=== PATIENT | male | born 1945 | race African-American/Black ===

== ENCOUNTER 2023-12-16 17:22 | Inpatient (IN) | payer OTHER ==
[2023-12-16] VITALS (9 sets, daily range): BP systolic 108–169; PULSE 42–85; RESP 15–23; TEMP 97.8–98.3; O2SAT 95–99
[~2023-12-16] VITALS: Ht 188 cm; Wt 99.8 kg
[2023-12-16] MEDS ORDERED: TRAZ-250 PO (17:34)
[2023-12-16] MEDS ORDERED: GLIP5TAB26 PO (17:34)
[2023-12-16] MEDS ORDERED: PIOG30TA70 PO (17:34)
[2023-12-16] MEDS ORDERED: FAMO40TA7 PO (17:34)
[2023-12-16] MEDS ORDERED: SILD20TA PO (17:34)
[2023-12-16] MEDS ORDERED: TAMS-11 PO (17:34)
[2023-12-16] MEDS ORDERED: GLIP-201 PO (17:34)
[2023-12-16] MEDS ORDERED: METF-834 PO (17:34)
[2023-12-16 18:24] LABS: BASOPHILS % (AUTO) 0.5 % (0.0-2.0); EOSINOPHILS # (AUTO) 0.4 K/uL (0.0-0.4); EOSINOPHILS % (AUTO) 5.3 % (0.0-4.0); HEMOGLOBIN 12.6 g/dL (14.0-18.0); LYMPHOCYTES # (AUTO) 2.7 K/uL (1.0-5.5); LYMPHOCYTES % (AUTO) 32.3 % (20.5-51.5); MEAN CORPUSCULAR HEMOGLOBIN 33 pg (27-31); MEAN CORPUSCULAR HGB CONC 34 % (32-36); MEAN CORPUSCULAR VOLUME 96 fL (79.0-98.0); MONOCYTES # (AUTO) 0.7 K/uL (0.0-1.0); MONOCYTES % (AUTO) 8.4 % (1.7-9.3); NEUTROPHILS # (AUTO) 4.4 K/uL (1.8-7.7); NEUTROPHILS % (AUTO) 53.5 % (40.0-70.0); PLATELET COUNT (AUTO) 172 K/uL (130-430); RED BLOOD CELL COUNT(AUTO) 3.84 MIL/uL (4.2-6.2); RED CELL DISTRIBUTION WIDTH 13.3 % (9.0-15.0); WHITE BLOOD COUNT (AUTO) 8.3 K/uL (4.8-10.8)
[2023-12-16] MEDS: ASPIRIN 325 MG TABLET PO ONE (18:34)
[2023-12-16 18:42] LABS: ANION GAP 10 (5-15); CALCIUM 8.8 mg/dL (8.4-11.0); CARBON DIOXIDE 25 mmol/L (23-29); CHLORIDE 110 mmol/L (98-107); CREATININE 1.72 mg/dL (0.55-1.30); GLUCOSE 114 mg/dL (74-106); SODIUM SERUM 145 mmol/L (136-145); UREA NITROGEN, BLOOD 19 mg/dL (8-21)
[2023-12-16 18:45] LABS: POTASSIUM 4.7 mmol/L (3.5-5.1)
[2023-12-16] MEDS ORDERED: LORazepam 1 MG TABLET PO ONE (18:45)
[2023-12-16] MEDS: MORPHINE 2 MG/ML INJ. SYRINGE IVP ONE (20:13)
[2023-12-16] MEDS ORDERED: HYDROcodone/ACETAMIN 10-325 MG TAB PO PRN (22:00)
[2023-12-16] MEDS ORDERED: HYDROcodone/ACETAMIN 5-325 MG TAB (NORCO/ VICODIN) PO PRN (22:00)
[2023-12-16] MEDS ORDERED: ONDANSETRON HCL 4 MG/2 ML VIAL IVP PRN (22:00)
[2023-12-16] MEDS ORDERED: ACETAMINOPHEN 325 MG TABLET PO PRN (22:00)
[2023-12-16] MEDS ORDERED: NALOXONE HCL 0.4 MG/ML AMP (NARCAN) IVP PRN ×2 (22:00)
[2023-12-16] MEDS ORDERED: LORazepam 2 MG/ML VIAL IVP PRN (22:00)
[2023-12-17] VITALS (28 sets, daily range): BP systolic 109–165; PULSE 38–62; RESP 11–27; TEMP 97.7–98; O2SAT 94–99
[2023-12-17] MEDS: traZODone HCL 50 MG TABLET (DESYREL) PO SCH (00:25)
[2023-12-17] MEDS: traZODone HCL 50 MG TABLET (DESYREL) ONE (01:42)
[2023-12-17 04:01] LABS: BASOPHILS % (AUTO) 0.3 % (0.0-2.0); EOSINOPHILS # (AUTO) 0.5 K/uL (0.0-0.4); EOSINOPHILS % (AUTO) 5.5 % (0.0-4.0); HEMATOCRIT 35.2 % (36-54); HEMOGLOBIN 12.1 g/dL (14.0-18.0); LYMPHOCYTES # (AUTO) 3.1 K/uL (1.0-5.5); LYMPHOCYTES % (AUTO) 37.5 % (20.5-51.5); MEAN CORPUSCULAR HEMOGLOBIN 33 pg (27-31); MEAN CORPUSCULAR HGB CONC 34 % (32-36); MEAN CORPUSCULAR VOLUME 97 fL (79.0-98.0); MONOCYTES # (AUTO) 0.7 K/uL (0.0-1.0); MONOCYTES % (AUTO) 8.7 % (1.7-9.3); PLATELET COUNT (AUTO) 160 K/uL (130-430); RED BLOOD CELL COUNT(AUTO) 3.63 MIL/uL (4.2-6.2); RED CELL DISTRIBUTION WIDTH 13.4 % (9.0-15.0); WHITE BLOOD COUNT (AUTO) 8.4 K/uL (4.8-10.8)
[2023-12-17 04:12] LABS: ANION GAP 8 (5-15); CALCIUM 8.8 mg/dL (8.4-11.0); CARBON DIOXIDE 27 mmol/L (23-29); CHLORIDE 109 mmol/L (98-107); CREATININE 1.67 mg/dL (0.55-1.30); GLUCOSE 89 mg/dL (74-106); POTASSIUM 4.4 mmol/L (3.5-5.1); SODIUM SERUM 144 mmol/L (136-145); UREA NITROGEN, BLOOD 17 mg/dL (8-21)
[2023-12-17] MEDS ORDERED: SILD100T PO (06:32)
[2023-12-17] MEDS ORDERED: METF-379 PO (06:43)
[2023-12-17] MEDS ORDERED: GLIP5TAB23 PO (08:28)
[2023-12-17] MEDS ORDERED: glipiZIDE XL 5 MG TAB ( GLUCOTROL XL) PO SCH (08:30)
[2023-12-17] MEDS: TAMSULOSIN HCL 0.4 MG CAP PO SCH (09:13)
[2023-12-17] MEDS: PIOGLITAZONE HCL 15 MG TABLET PO SCH (09:13)
[2023-12-17] MEDS: metFORMIN HCL 500 MG TABLET PO SCH (09:14)
[2023-12-17] MEDS: FAMOTIDINE 20 MG TABLET PO SCH (09:14)
[2023-12-17] MEDS ORDERED: INSULIN REGULAR, HUMAN 100 UNITS/ML, 3 ML VIAL SUBCUT SCH (11:30)
[2023-12-18] VITALS (27 sets, daily range): BP systolic 100–171; PULSE 40–71; RESP 14–24; TEMP 97.4–98; O2SAT 93–99
[2023-12-18] MEDS: traZODone HCL 50 MG TABLET (DESYREL) PO ONE (00:11)
[2023-12-18 03:56] LABS: BASOPHILS % (AUTO) 0.5 % (0.0-2.0); EOSINOPHILS # (AUTO) 0.5 K/uL (0.0-0.4); EOSINOPHILS % (AUTO) 6.5 % (0.0-4.0); HEMATOCRIT 36.2 % (36-54); HEMOGLOBIN 12.4 g/dL (14.0-18.0); LYMPHOCYTES # (AUTO) 2.8 K/uL (1.0-5.5); MEAN CORPUSCULAR HEMOGLOBIN 33 pg (27-31); MEAN CORPUSCULAR HGB CONC 34 % (32-36); MEAN CORPUSCULAR VOLUME 97 fL (79.0-98.0); MONOCYTES # (AUTO) 0.6 K/uL (0.0-1.0); MONOCYTES % (AUTO) 7.9 % (1.7-9.3); NEUTROPHILS % (AUTO) 50.1 % (40.0-70.0); PLATELET COUNT (AUTO) 165 K/uL (130-430); RED BLOOD CELL COUNT(AUTO) 3.74 MIL/uL (4.2-6.2); RED CELL DISTRIBUTION WIDTH 13.1 % (9.0-15.0); WHITE BLOOD COUNT (AUTO) 8.1 K/uL (4.8-10.8)
[2023-12-18 04:20] LABS: ALANINE AMINOTRANSFERASE 8 U/L (12-78); ALBUMIN 3.1 g/dL (3.4-4.8); ANION GAP 8 (5-15); ASPARTATE AMINOTRANSFERASE < 5 U/L (10-37); CARBON DIOXIDE 28 mmol/L (23-29); CHLORIDE 108 mmol/L (98-107); CREATININE 1.49 mg/dL (0.55-1.30); GLUCOSE 81 mg/dL (74-106); PHOSPHORUS 5.1 mg/dL (2.7-4.5); POTASSIUM 4.6 mmol/L (3.5-5.1); SODIUM SERUM 144 mmol/L (136-145); TOTAL BILIRUBIN 0.5 mg/dL (0.0-1.0); UREA NITROGEN, BLOOD 16 mg/dL (8-21)
[2023-12-18] MEDS: INSULIN REGULAR, HUMAN 100 UNITS/ML, 3 ML VIAL (humuLIN R) SUBCUT PRN (11:31)
[2023-12-18] MEDS ORDERED: traZODone HCL 50 MG TABLET (DESYREL) PO ONE (21:00)
[2023-12-18] MEDS: hydrALAZINE HCL 20 MG/ML VIAL IVP PRN (22:56)
[2023-12-19] VITALS (20 sets, daily range): BP systolic 93–147; PULSE 48–73; RESP 10–25; TEMP 97.7–98.9; O2SAT 94–100
[2023-12-19 05:42] LABS: BASOPHILS % (AUTO) 0.5 % (0.0-2.0); EOSINOPHILS # (AUTO) 0.5 K/uL (0.0-0.4); EOSINOPHILS % (AUTO) 5.5 % (0.0-4.0); HEMATOCRIT 38.2 % (36-54); HEMOGLOBIN 13.1 g/dL (14.0-18.0); LYMPHOCYTES % (AUTO) 24.3 % (20.5-51.5); MEAN CORPUSCULAR HEMOGLOBIN 33 pg (27-31); MEAN CORPUSCULAR HGB CONC 34 % (32-36); MEAN CORPUSCULAR VOLUME 97 fL (79.0-98.0); MONOCYTES # (AUTO) 0.7 K/uL (0.0-1.0); MONOCYTES % (AUTO) 8.1 % (1.7-9.3); NEUTROPHILS # (AUTO) 5.1 K/uL (1.8-7.7); NEUTROPHILS % (AUTO) 61.6 % (40.0-70.0); PLATELET COUNT (AUTO) 174 K/uL (130-430); RED BLOOD CELL COUNT(AUTO) 3.95 MIL/uL (4.2-6.2); RED CELL DISTRIBUTION WIDTH 13.2 % (9.0-15.0); WHITE BLOOD COUNT (AUTO) 8.2 K/uL (4.8-10.8)
[2023-12-19 06:09] LABS: ANION GAP 14 (5-15); CARBON DIOXIDE 25 mmol/L (23-29); CHLORIDE 106 mmol/L (98-107); CREATININE 1.47 mg/dL (0.55-1.30); GLUCOSE 84 mg/dL (74-106); PHOSPHORUS 4.6 mg/dL (2.7-4.5); POTASSIUM 3.5 mmol/L (3.5-5.1); SODIUM SERUM 145 mmol/L (136-145); UREA NITROGEN, BLOOD 16 mg/dL (8-21)
[2023-12-20] VITALS: BP_SYST 156; PULSE 66; RESP 20; TEMP 97.7; O2SAT 100
[2023-12-20 04:00] VITALS: BP_SYST 128; PULSE 62; RESP 18; TEMP 98.1; O2SAT 98
[2023-12-20 06:19] LABS: BASOPHILS % (AUTO) 0.4 % (0.0-2.0); EOSINOPHILS # (AUTO) 0.5 K/uL (0.0-0.4); EOSINOPHILS % (AUTO) 6.2 % (0.0-4.0); HEMOGLOBIN 12.4 g/dL (14.0-18.0); LYMPHOCYTES % (AUTO) 24.3 % (20.5-51.5); MEAN CORPUSCULAR HEMOGLOBIN 33 pg (27-31); MEAN CORPUSCULAR HGB CONC 34 % (32-36); MEAN CORPUSCULAR VOLUME 97 fL (79.0-98.0); MONOCYTES # (AUTO) 0.8 K/uL (0.0-1.0); MONOCYTES % (AUTO) 9.2 % (1.7-9.3); NEUTROPHILS % (AUTO) 59.9 % (40.0-70.0); PLATELET COUNT (AUTO) 170 K/uL (130-430); RED CELL DISTRIBUTION WIDTH 13.4 % (9.0-15.0); WHITE BLOOD COUNT (AUTO) 8.3 K/uL (4.8-10.8)
[2023-12-20 06:37] LABS: ANION GAP 10 (5-15); CALCIUM 9.1 mg/dL (8.4-11.0); CARBON DIOXIDE 27 mmol/L (23-29); CHLORIDE 107 mmol/L (98-107); CREATININE 1.58 mg/dL (0.55-1.30); GLUCOSE 135 mg/dL (74-106); PHOSPHORUS 4.8 mg/dL (2.7-4.5); POTASSIUM 4.6 mmol/L (3.5-5.1); SODIUM SERUM 144 mmol/L (136-145); UREA NITROGEN, BLOOD 12 mg/dL (8-21)
[2023-12-20 08:00] VITALS: BP_SYST 158; PULSE 69; RESP 16; TEMP 98.4; O2SAT 99
[2023-12-20 12:28] VITALS: BP_SYST 136; PULSE 65; RESP 20; TEMP 97.2; O2SAT 99
[2023-12-20 13:02] VITALS: BP_SYST 136; PULSE 65; RESP 20; TEMP 97.2; O2SAT 99
== END 2023-12-20 13:45 | disposition home or self-care (01) | DRG 308 ==
LOC: SED 17:22 → SIC 19:28 → STU 12-19 18:45
PROVIDERS: ADMIT Preventive Medicine Preventive Medicine/Occupational Environmental Medicine; ATTEND Preventive Medicine Preventive Medicine/Occupational Environmental Medicine
DX: I49.5 Sick sinus syndrome (principal); N17.0 Acute kidney failure with tubular necrosis; E44.0 Moderate protein-calorie malnutrition; E78.5 Hyperlipidemia, unspecified; I48.0 Paroxysmal atrial fibrillation; E11.22 Type 2 diabetes mellitus with diabetic chronic kidney disease; I12.9 Hypertensive chronic kidney disease with stage 1 through stage 4 chronic kidney disease, or unspecified chronic kidney disease; N18.9 Chronic kidney disease, unspecified; E83.39 Other disorders of phosphorus metabolism; N40.0 Benign prostatic hyperplasia without lower urinary tract symptoms; I44.0 Atrioventricular block, first degree; E11.65 Type 2 diabetes mellitus with hyperglycemia; D64.9 Anemia, unspecified; K21.9 Gastro-esophageal reflux disease without esophagitis; E88.09 Other disorders of plasma-protein metabolism, not elsewhere classified; F03.90 Unspecified dementia, unspecified severity, without behavioral disturbance, psychotic disturbance, mood disturbance, and anxiety; Z79.84 Long term (current) use of oral hypoglycemic drugs; Z79.899 Other long term (current) drug therapy; Z79.01 Long term (current) use of anticoagulants; Z68.28 Body mass index [BMI] 28.0-28.9, adult; Z90.49 Acquired absence of other specified parts of digestive tract
CPT/HCPCS: 36415; 76770; 80048; 80053; 82948; 83735; 84100; 84302; 84484; 85025; 85379; 87081; 93005; 93306; 96374; 99291; G0378; J0360; J1815; J2270